=== PATIENT | female | born 1995 | race Caucasian/White ===

== ENCOUNTER 2018-03-10 14:47 | Observation (INO) ==
--- NOTE | 2018-03-10 15:25 | OB/GYN Progress Note ---
Date of Encounter: 03/10/18 Time of Encounter: 15:23 - Assessment and Plan (1) 34 weeks gestation of Current Visit: Yes Status: Acute Follow-up as scheduled on Return labor precautions given S/Sx of preeclampsia discussed Discharge home (2) Hypertension affecting in third trimester Current Visit: Yes Status: Acute PIH labs sent (3) NST (non-stress test) reactive on surveillance Current Visit: Yes Status: Acute (4) uterine contractions in third trimester, antepartum Current Visit: Yes Status: Acute Reports she is not feeling the contractions Subjective - Subjective Principal diagnosis: PIH evaluation Interval history: Ms. Concepcion is a 22-year-old with an estimated date of is 04/19/18 at 34 weeks 2 days gestation dated by LMP. She presents with reports of high blood pressures in her office visit today as well as some floaters in her vision. She denies headaches and right upper quadrant pain she reports over the past several weeks she has noticed increased swelling. She reports positive movement. Her course has been uncomplicated so far. She is followed by the midwives. Her records are available in her chart and have been reviewed. Antepartum ROS: new complaints, movement normal, contractions (Started on arrival to L&D), no loss of fluid, no vaginal bleeding Objective - Vital Signs Vital Signs: Intake and Output 03/09/18 03/10/18 03/10/18 23:59 07:59 15:59 Other: Weight 74.2 kg Patient Weight 03/10/18 23:59 Weight 74.2 kg - Exam FHR: category 1 FHR comments: Baseline 130 Moderate variability Accelerations present 15x15 Decelerations absent FHR Category I Contractions on toco every 4-6 minutes and palpate mild Auscultation: bilateral: normal Abdomen: Present: normal appearance, soft, gravid Uterus: Present: normal, firm Comments: DTR +4 No clonus
[2018-03-10 15:43] LABS: Basophils % 0.2 %; Eosinophils % 0.3 %; Hematocrit 36.9 % (35.3-44.9); Hemoglobin 13.3 g/dL (11.5-15.4); Immature Granulocytes % 1.4 % (0-4); Lymphocytes # 2.1 K/mcL (0.6-4.6); Lymphocytes % 15.7 %; Mean Corpuscular Hemoglobin 31.1 pg (28.0-33.3); Mean Corpuscular Volume 86.2 fL (83.0-100.0); Monocytes % 7.7 %; Neutrophils # 9.8 K/mcL (1.6-8.9); Platelet Count 149 K/mcL (140-400); Red Blood Count 4.28 M/mcL (3.82-4.97); Red Cell Distribution Width 13.2 % (11.5-14.5); Segmented Neutrophils % 74.7 %
[2018-03-10 15:56] LABS: Alanine Aminotransferase 9 Units/L (7-52); Aspartate Amino Transferase 14 Units/L (13-39); BUN/Creatinine Ratio 20 (6-26); Blood Urea Nitrogen 9 mg/dL (6-20); Lactate Dehydrogenase 164 Units/L (140-271); Uric Acid 4.9 mg/dL (2.3-7.6); eGFR For African Americans > 60 (> 60); eGFR For Non-African Americans > 60 (> 60)
[2018-03-10 15:59] LABS: Amphetamine Screen,Urine Negative ng/mL (Cutoff=1000); Barbiturate Screen,Urine Negative ng/mL (Cutoff=200); Benzodiazepines Screen,Urine Negative ng/mL (Cutoff=200); Cannabinoid Screen,Urine Negative ng/mL (Cutoff = 50); Cocaine Screen,Urine Negative ng/mL (Cutoff= 300); Creatinine,Urine 59 mg/dL; Opiate Screen,Urine Negative ng/mL (Cutoff=300); Phencyclidine Screen,Urine Negative ng/mL (Cutoff=25); Protein/Creatinine Ratio,Urine 0.24 mg/mg (0.00-0.20)
[2018-03-10 16:17] LABS: Bacteria,Urine Few per hpf (None-Few); Bilirubin,Urine Negative (Negative); Blood,Urine Negative (Negative); Color,Urine Yellow (Yellow); Glucose,Urine (UA) Normal (Normal); Hyaline Casts,Urine None Seen per lpf (None-Few); Ketones,Urine Negative (Negative); Leukocyte Esterase,Urine Small (Negative); Nitrite,Urine Negative (Negative); PH,Urine 7.5 pH Units (5.0-8.0); Protein,Urine Negative (Neg-Trace); RBC,Urine 0-3 per hpf (0-3); Specific Gravity,Urine 1.016 (1.010-1.025); Squamous Epithelial Cell,Urine Many per lpf (None-Few); Urobilinogen,Urine Normal (Normal)
[2018-03-10 16:18] LABS: Clarity,Urine Slightly Hazy (Clear)
== END 2018-03-10 18:27 | disposition home or self-care (01) ==
LOC: 1NENULAB
PROVIDERS: ADMIT Obstetrics & Gynecology; ATTEND Obstetrics & Gynecology

== ENCOUNTER 2018-03-13 15:11 | Observation (INO) ==
[2018-03-13 16:15] LABS: Basophils % 0.1 %; Eosinophils % 0.2 %; Hematocrit 33.8 % (35.3-44.9); Hemoglobin 12.2 g/dL (11.5-15.4); Immature Granulocytes % 0.8 % (0-4); Lymphocytes # 1.6 K/mcL (0.6-4.6); Lymphocytes % 14.3 %; Mean Corpuscular HGB Conc 36.1 g/dL (31.6-35.5); Mean Corpuscular Hemoglobin 30.8 pg (28.0-33.3); Mean Corpuscular Volume 85.4 fL (83.0-100.0); Mean Platelet Volume 13.1 fL (9.4-12.4); Monocytes # 0.9 K/mcL (0.0-1.3); Neutrophils # 8.4 K/mcL (1.6-8.9); Platelet Count 149 K/mcL (140-400); Red Blood Count 3.96 M/mcL (3.82-4.97); Red Cell Distribution Width 13.4 % (11.5-14.5); Segmented Neutrophils % 76.6 %
[2018-03-13 16:19] LABS: Amphetamine Screen,Urine Negative ng/mL (Cutoff=1000); Barbiturate Screen,Urine Negative ng/mL (Cutoff=200); Benzodiazepines Screen,Urine Negative ng/mL (Cutoff=200); Cannabinoid Screen,Urine Negative ng/mL (Cutoff = 50); Cocaine Screen,Urine Negative ng/mL (Cutoff= 300); Creatinine,Urine 68 mg/dL; Opiate Screen,Urine Negative ng/mL (Cutoff=300); Phencyclidine Screen,Urine Negative ng/mL (Cutoff=25); Protein/Creatinine Ratio,Urine 0.18 mg/mg (0.00-0.20)
[2018-03-13 16:26] LABS: Alanine Aminotransferase 11 Units/L (7-52); Aspartate Amino Transferase 13 Units/L (13-39); BUN/Creatinine Ratio 20 (6-26); Blood Urea Nitrogen 10 mg/dL (6-20); Lactate Dehydrogenase 129 Units/L (140-271); Uric Acid 5.6 mg/dL (2.3-7.6); eGFR For African Americans > 60 (> 60); eGFR For Non-African Americans > 60 (> 60)
--- NOTE | 2018-03-13 17:32 | OB/GYN Progress Note ---
Date of Encounter: 03/13/18 Time of Encounter: 17:30 - Assessment and Plan (1) 34 weeks gestation of Current Visit: No Status: Acute (2) Hypertension affecting in third trimester Current Visit: No Status: Acute Patient normotensive in triage. Last blood pressure 121/66. PIH labs negative. Discussed blood pressures and lab results with Dr. Haji. No medication at this time. Telephone encounter sent office to schedule appointment for Saturday. 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 Discharged home with PIH, and labor precautions. Patient verbalizes understanding Subjective - Subjective Interval history: 34+5 weeks gestation presents to triage from the office for evaluation of elevated blood pressure, and PIH evaluation. Patient has had elevated blood pressure the last visits. Today in the office her blood pressure is 142/82. Patient denies headache, visual changes, right upper quadrant pain. Patient reports good movement, denies contractions, vaginal bleeding or leaking of fluid Antepartum ROS: movement normal, no loss of fluid, no vaginal bleeding, no contractions Objective - Vital Signs Vital Signs: Intake and Output 03/13/18 03/13/18 03/13/18 07:59 15:59 23:59 Other: Weight 74 kg Patient Weight 03/13/18 23:59 Weight 74 kg - Exam FHR: auscultation normal FHR comments: Baseline 135 Abdomen: Present: normal appearance, soft, gravid - Labs Labs: Abnormal lab results Hct 33.8 % (35.3-44.9) L 03/13/18 15:40 MCHC 36.1 g/dL (31.6-35.5) H 03/13/18 15:40 MPV 13.1 fL (9.4-12.4) H 03/13/18 15:40 Creatinine 0.50 mg/dL (0.60-1.20) L 03/13/18 15:40 Lactate Dehydrogenase 129 Units/L (140-271) L 03/13/18 15:40
== END 2018-03-13 17:32 | disposition home or self-care (01) ==
LOC: 1NENULAB
PROVIDERS: ADMIT Advanced Practice Midwife; ATTEND Advanced Practice Midwife

== ENCOUNTER → 2018-03-18 18:00 | Observation (INO) ==
[2018-03-18 17:04] LABS: Basophils % 0.1 %; Eosinophils % 0.3 %; Hematocrit 34.8 % (35.3-44.9); Hemoglobin 12.3 g/dL (11.5-15.4); Immature Granulocytes % 0.8 % (0-4); Lymphocytes # 1.6 K/mcL (0.6-4.6); Lymphocytes % 14.6 %; Mean Corpuscular HGB Conc 35.3 g/dL (31.6-35.5); Mean Corpuscular Hemoglobin 30.1 pg (28.0-33.3); Mean Corpuscular Volume 85.1 fL (83.0-100.0); Mean Platelet Volume 12.7 fL (9.4-12.4); Monocytes # 0.8 K/mcL (0.0-1.3); Monocytes % 7.4 %; Neutrophils # 8.6 K/mcL (1.6-8.9); Platelet Count 133 K/mcL (140-400); Red Blood Count 4.09 M/mcL (3.82-4.97); Red Cell Distribution Width 13.4 % (11.5-14.5); Segmented Neutrophils % 76.8 %
[2018-03-18 17:24] LABS: Amphetamine Screen,Urine Negative ng/mL (Cutoff=1000); Barbiturate Screen,Urine Negative ng/mL (Cutoff=200); Benzodiazepines Screen,Urine Negative ng/mL (Cutoff=200); Cannabinoid Screen,Urine Negative ng/mL (Cutoff = 50); Cocaine Screen,Urine Negative ng/mL (Cutoff= 300); Creatinine,Urine 56 mg/dL; Opiate Screen,Urine Negative ng/mL (Cutoff=300); Phencyclidine Screen,Urine Negative ng/mL (Cutoff=25); Protein/Creatinine Ratio,Urine 0.18 mg/mg (0.00-0.20)
[2018-03-18 17:28] LABS: Alanine Aminotransferase 11 Units/L (7-52); Aspartate Amino Transferase 13 Units/L (13-39); BUN/Creatinine Ratio 19 (6-26); Blood Urea Nitrogen 9 mg/dL (6-20); Lactate Dehydrogenase 152 Units/L (140-271); Uric Acid 5.7 mg/dL (2.3-7.6); eGFR For African Americans > 60 (> 60); eGFR For Non-African Americans > 60 (> 60)
--- NOTE | 2018-03-18 17:49 | Discharge Summary ---
Date of Encounter: 03/18/18 Time of Encounter: 17:48 - Discharge Diagnosis (1) 35 weeks gestation of Priority: Primary Status: Acute Comments: admitted for PIH evaluation (2) Elevated BP without diagnosis of hypertension Priority: Secondary Status: Acute Comments: PIH labs WNL BPs WNL - Discharge Medications Home Medications: Magnesium 300 mg Capsule 200 mg PO DAILY 03/10/18 [History] Vit Calc,Iron,Folic [ Vitamins] 1 tab PO DAILY 03/10/18 [ History] Allergies/Adverse Reactions: 3 Allergy/AdvReac Type Severity Reaction Status Date / Time No Known Allergies Allergy Verified 03/10/18 15:02 Data Procedures and tests throughout hospitalization: Laboratory Tests 03/18/18 03/18/18 03/18/18 16:46 16:46 16:46 WBC 11.2 H RBC 4.09 Hgb 12.3 Hct 34.8 L MCV 85.1 MCH 30.1 MCHC 35.3 RDW 13.4 Plt Count 133 L MPV 12.7 H Immature Gran % 0.8 Seg Neutrophils % 76.8 Lymphocytes % 14.6 Monocytes % 7.4 Eosinophils % 0.3 Basophils % 0.1 Neutrophils # 8.6 Lymphocytes # 1.6 Monocytes # 0.8 Eosinophils # 0.0 Basophils # 0.0 BUN 9 Creatinine 0.48 L Est GFR ( Amer) > 60 Est GFR (Non-Af Amer) > 60 BUN/Creatinine Ratio 19 Uric Acid 5.7 AST 13 ALT 11 Lactate Dehydrogenase 152 Urine Creatinine 56 Protein/Creatinin Ratio 0.18 Urine Total Protein 10 Urine Opiates Screen Negative Ur Barbiturates Screen Negative Ur Phencyclidine Scrn Negative Ur Amphetamines Screen Negative U Benzodiazepines Scrn Negative Urine Cocaine Screen Negative U Marijuana (THC) Screen Negative Labs on day of discharge: Labs from last 24 hours 03/18/18 03/18/18 03/18/18 16:46 16:46 16:46 WBC 11.2 H RBC 4.09 Hgb 12.3 Hct 34.8 L MCV 85.1 MCH 30.1 MCHC 35.3 RDW 13.4 Plt Count 133 L MPV 12.7 H Immature Gran % 0.8 Seg Neutrophils % 76.8 Lymphocytes % 14.6 Monocytes % 7.4 Eosinophils % 0.3 Basophils % 0.1 Neutrophils # 8.6 Lymphocytes # 1.6 Monocytes # 0.8 Eosinophils # 0.0 Basophils # 0.0 BUN 9 Creatinine 0.48 L Est GFR ( Amer) > 60 Est GFR (Non-Af Amer) > 60 BUN/Creatinine Ratio 19 Uric Acid 5.7 AST 13 ALT 11 Lactate Dehydrogenase 152 Urine Creatinine 56 Protein/Creatinin Ratio 0.18 Urine Total Protein 10 Urine Opiates Screen Negative Ur Barbiturates Screen Negative Ur Phencyclidine Scrn Negative Ur Amphetamines Screen Negative U Benzodiazepines Scrn Negative Urine Cocaine Screen Negative U Marijuana (THC) Screen Negative Date of admission: 03/18/18 16:27 Primary care physician: PCP NONE Discharging clinician: Keren Mcaky Anticipated date of discharge: 03/18/18 - Patient Status Disposition: Home, Self-Care Condition: Good Functional capacity at discharge: independent ambulation - Discharge Instructions Follow Up With: NONE,PCP [Primary Care Provider] - Melony Roman CNM [Non-Partnered Physician] - - Diet and Activity Activity: increase activity as tolerated Diet: regular diet 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 Patient denies HERMAN, visual disturbances or epigastric pain. Patient reports +FM and edema bilateral lower extremities. Denies contractions, LOF or VB. Time Attestation: Total time spent providing and/or coordinating discharge services: Time Spent: Less than 30 minutes Exam - Constitutional General appearance IM: A&O X 3, pleasant, answers questions appropriately - Respiratory Respiratory exam: Present: CTAB - Cardiovascular Cardiovascular exam IM: Present: RRR, +S1, +S2 - GI/Abdominal GI/Abdominal exam IM: normal bowel sounds - Extremities Exam Extremities exam IM: Present: full ROM, normal capillary refill, normal inspection - Neurological Exam Neurological exam: alert, oriented X3, reflexes normal - Other Additional findings: FHR 130 bpm moderate variability +15x15 accels no decels noted. Cat. 1 tracing - VTE Reasons for not Prescribing Prophylaxis: Treatment not Indicated - Low risk for VTE
== END | disposition home or self-care (01) ==
LOC: 1NENULAB
PROVIDERS: ADMIT Obstetrics & Gynecology; ATTEND Obstetrics & Gynecology

== ENCOUNTER 2018-03-24 15:40 | Observation (INO) ==
--- NOTE | 2018-03-24 16:32 | OB/GYN History & Physical ---
Date of Encounter: 03/24/18 Time of Encounter: 16:29 Assessment and Plan (1) 36 weeks gestation of Current visit: Yes Status: Acute Continue follow-up as scheduled labor and labor precautions given Discharge home with plans to return Saturday for induction (2) Pre-eclampsia affecting , antepartum Current visit: Yes Status: Acute Plan to return Saturday for induction at 37 weeks Plan was discussed with Dr. Cowan Patient notified and signed induction paperwork and orders were written Preeclampsia precautions given to patient and partner History of Present Illness Chief complaint: PIH evaluation sent from clinic HPI: Ms. Concepcion is a 22 year old female at 36 weeks 2 days gestation with an estimated date of of 04/19/18 dated by LMP. She presents today from the office with complaints of mild facial swelling centrally located on her nose, slightly elevated blood pressures, mild proteinuria. She reports good movement and denies contractions, leakage of fluid, vaginal bleeding. Past Med Surg Social Fam HX - Past Medical History Medical history: no medical history Psychiatric history: no psych history - Past Surgical History Surgical History: no surgical history - Social History Smoking Status: Never smoker Smokeless Tobacco Status: No Alcohol use: none Drug use: none - Family History Mother Adopted: No Living Status: Still Living Hx Family Cardiac Disorders: No Hx Family Respiratory Disorders: No Hx Family Cancer: No Hx Family GI Disorders: No Hx Family Genitourinary Disorders: No Hx Family Endocrine Disorder: No Hx Family Musculoskeletal Disorders: No Hx Family Neuromuscular Disorders: No Hx Family Neurologic Disorders: No Hx Family HEENT Disorders: No Hx Family Autoimmune Disorders: No Hx Family Reproductive Disorders: No Hx Family Psychosocial Disorders: No Hx Family Medical Disorders: No Obstetrical History - Pregnancies : 1 Para: 0 Term: 0 : 0 Ab's: 0 Livin Medications and Allergies Vit Calc,Iron,Folic [ Vitamins] 1 tab PO DAILY 03/10/18 [ History] 3 Allergy/AdvReac Type Severity Reaction Status Date / Time No Known Allergies Allergy Verified 03/10/18 15:02 Review of System OB All systems PM: reviewed and no additional remarkable complaints except as stated Exam - Constitutional Constitutional: well developed, well nourished, no acute distress, average body habitus - HEENT HEENT: Normocephaly, Mucus Membranes Moist - Neck Neck exam: full ROM - Lungs Respiratory exam: CTAB - Cardiovascular Cardiovascular exam: RRR, +S1, +S2 - Breasts Breast: bilateral: normal - Abdomen Abdomen: Present: bowel sounds normal, gravid, non tender - Extremities Extremities exam: normal capillary refill, normal inspection, radial pulses palpable and symmetrical - Vulva Vulva: bilateral: normal - Cervix Dilation: 1 (per Kaia, CNM) Effacement: 60 Station: -3 - Uterus Uterus exam: Present: normal size, normal contour - Anus/Rectum Anus/Rectum: Present: normal perianal skin Results Result Diagrams: 03/24/18 15:47 03/24/18 15:47 All other labs normal. - VTE Reasons for not Prescribing Prophylaxis: Treatment not Indicated - Low risk for VTE
[2018-03-24 16:39] LABS: Basophils % 0.1 %; Eosinophils % 0.3 %; Lymphocytes # 1.7 K/mcL (0.6-4.6); Lymphocytes % 13.3 %; Mean Corpuscular HGB Conc 36.1 g/dL (31.6-35.5); Mean Corpuscular Hemoglobin 31.1 pg (28.0-33.3); Mean Corpuscular Volume 86.1 fL (83.0-100.0); Mean Platelet Volume 13.5 fL (9.4-12.4); Neutrophils # 9.8 K/mcL (1.6-8.9); Platelet Count 155 K/mcL (140-400); Red Blood Count 4.18 M/mcL (3.82-4.97); Red Cell Distribution Width 13.5 % (11.5-14.5); Segmented Neutrophils % 77.3 %
[2018-03-24 16:46] LABS: Alanine Aminotransferase 11 Units/L (7-52); Aspartate Amino Transferase 14 Units/L (13-39); BUN/Creatinine Ratio 22 (6-26); Blood Urea Nitrogen 12 mg/dL (6-20); Lactate Dehydrogenase 171 Units/L (140-271); Uric Acid 5.8 mg/dL (2.3-7.6); eGFR For African Americans > 60 (> 60); eGFR For Non-African Americans > 60 (> 60)
[2018-03-24 17:02] LABS: Amphetamine Screen,Urine Negative ng/mL (Cutoff=1000); Barbiturate Screen,Urine Negative ng/mL (Cutoff=200); Benzodiazepines Screen,Urine Negative ng/mL (Cutoff=200); Cannabinoid Screen,Urine Negative ng/mL (Cutoff = 50); Cocaine Screen,Urine Negative ng/mL (Cutoff= 300); Opiate Screen,Urine Negative ng/mL (Cutoff=300); Phencyclidine Screen,Urine Negative ng/mL (Cutoff=25)
[2018-03-24 17:03] LABS: Bilirubin,Urine Negative (Negative); Blood,Urine Negative (Negative); Clarity,Urine Clear (Clear); Color,Urine Yellow (Yellow); Glucose,Urine (UA) Normal (Normal); Ketones,Urine Negative (Negative); Leukocyte Esterase,Urine Small (Negative); Nitrite,Urine Negative (Negative); Protein,Urine Trace mg/dL (Neg-Trace); Specific Gravity,Urine 1.018 (1.010-1.025); Urobilinogen,Urine Normal (Normal)
[2018-03-24 17:06] LABS: Bacteria,Urine Few per hpf (None-Few); Hyaline Casts,Urine None Seen per lpf (None-Few); Squamous Epithelial Cell,Urine Many per lpf (None-Few)
[2018-03-24 17:08] LABS: RBC,Urine 0-3 per hpf (0-3)
[2018-03-24 17:15] LABS: Protein/Creatinine Ratio,Urine 0.42 mg/mg (0.00-0.20)
== END 2018-03-24 18:43 | disposition home or self-care (01) ==
LOC: 1NENULAB
PROVIDERS: ADMIT Obstetrics & Gynecology; ATTEND Obstetrics & Gynecology

== ENCOUNTER 2018-03-29 07:36 | Inpatient (IN) ==
[2018-03-29] MEDS ORDERED: Lidocaine 1% 20 ML MDV INFILT PRN (07:53)
[2018-03-29] MEDS ORDERED: Famotidine 20 MG/2 ML VIAL IVP PRN (07:53)
[2018-03-29] MEDS ORDERED: Naloxone 0.4 MG/ML INJ IVP PRN (07:53)
[2018-03-29 08:43] LABS: Basophils % 0.1 %; Eosinophils % 0.2 %; Hemoglobin 13.2 g/dL (11.5-15.4); Immature Granulocytes % 0.9 % (0-4); Lymphocytes % 14.7 %; Mean Corpuscular HGB Conc 34.7 g/dL (31.6-35.5); Mean Corpuscular Hemoglobin 29.8 pg (28.0-33.3); Mean Corpuscular Volume 85.8 fL (83.0-100.0); Mean Platelet Volume 13.6 fL (9.4-12.4); Monocytes # 0.8 K/mcL (0.0-1.3); Neutrophils # 10.6 K/mcL (1.6-8.9); Platelet Count 140 K/mcL (140-400); Red Blood Count 4.43 M/mcL (3.82-4.97); Red Cell Distribution Width 13.5 % (11.5-14.5); Segmented Neutrophils % 78.1 %
[2018-03-29] MEDS ORDERED: Ondansetron 4 MG/2 ML VIAL IVP PRN (08:48)
[2018-03-29 08:59] LABS: Alanine Aminotransferase 10 Units/L (7-52); Aspartate Amino Transferase 13 Units/L (13-39); BUN/Creatinine Ratio 19 (6-26); Blood Urea Nitrogen 10 mg/dL (6-20); Lactate Dehydrogenase 141 Units/L (140-271); eGFR For African Americans > 60 (> 60); eGFR For Non-African Americans > 60 (> 60)
[2018-03-29] MEDS ORDERED: Ringers Solution, Lactated 1,000 ML IVC SCH (09:00)
[2018-03-29] MEDS ORDERED: Ondansetron 4 MG/2 ML VIAL ONE (09:13)
[2018-03-29] MEDS ORDERED: miSOPROStol 25 MCG TABLET PO ONE (09:42)
[2018-03-29 10:04] LABS: Amphetamine Screen,Urine Negative ng/mL (Cutoff=1000); Barbiturate Screen,Urine Negative ng/mL (Cutoff=200); Benzodiazepines Screen,Urine Negative ng/mL (Cutoff=200); Cannabinoid Screen,Urine Negative ng/mL (Cutoff = 50); Cocaine Screen,Urine Negative ng/mL (Cutoff= 300); Opiate Screen,Urine Negative ng/mL (Cutoff=300); Phencyclidine Screen,Urine Negative ng/mL (Cutoff=25)
--- NOTE | 2018-03-29 10:13 | OB/GYN History & Physical ---
Date of Encounter: 03/29/18 Time of Encounter: 10:05 Assessment and Plan (1) 37 weeks gestation of Current visit: Yes Status: Acute Admit for IOL due to pre-eclampsia without severe features. BP well controlled at this time. Plan for montiel/cytotec induction. Montiel balloon placed using sterile technique. 40ml sterile water placed in balloon. Pt tolerated well. Pt to ambulate for a short time prior to administration of cytotec. GBS negative. Epidural when requested. Anticipate . POC discussed with Dr. Ku (2) Polyhydramnios affecting in third trimester Current visit: Yes Status: Acute (3) Pre-eclampsia affecting , antepartum Current visit: No Status: Acute History of Present Illness Chief complaint: preeclampsia without severe features, IOL HPI: Ms. Concepcion is a 22 year old female presenting at 37 weeks gestation for IOL due to preeclampsia. She denies HERMAN, vision changes, RUQ pain or any other complaints at this time. Good FM. BP normal today. This is also complicated by polyhydramnios diagnosed at 36 weeks with NIKITA of 27.65cm. At that time the EFW was 3025g (73%). She plans on an epidural for pain and intends to breastfeed. Blood type O positive Rubella immune Serologies negative GBS negative Past Med Surg Social Fam HX - Past Medical History Medical history: no medical history Psychiatric history: no psych history - Past Surgical History Surgical History: no surgical history - Social History Smoking Status: Never smoker Smokeless Tobacco Status: No Alcohol use: none Drug use: none - Family History Mother Adopted: No Living Status: Still Living Hx Family Cardiac Disorders: No Hx Family Respiratory Disorders: No Hx Family Cancer: No Hx Family GI Disorders: No Hx Family Endocrine Disorder: No Hx Family Neuromuscular Disorders: No Hx Family Neurologic Disorders: No Hx Family HEENT Disorders: No Hx Family Autoimmune Disorders: No Hx Family Medical Disorders: No Obstetrical History - Pregnancies : 1 Medications and Allergies Vit Calc,Iron,Folic [ Vitamins] 1 tab PO DAILY 03/10/18 [ History] 3 Allergy/AdvReac Type Severity Reaction Status Date / Time No Known Allergies Allergy Verified 03/10/18 15:02 Review of System OB All systems PM: reviewed and no additional remarkable complaints except as stated Exam - Constitutional Constitutional: well developed, well nourished, no acute distress - HEENT HEENT: Mucus Membranes Moist - Lungs Respiratory exam: CTAB - Cardiovascular Cardiovascular exam: RRR - Abdomen Abdomen: Present: gravid, non tender - Extremities Extremities exam: normal inspection - Vulva Vulva: bilateral: normal - Vagina Vagina: Present: normal moisture - Cervix Dilation: 1 Effacement: 70 Station: -2 - Anus/Rectum Anus/Rectum: Present: normal perianal skin Results Result Diagrams: 03/29/18 08:15 03/29/18 08:15 Abnormal lab results WBC 13.6 K/mcL (4.3-11.1) H 03/29/18 08:15 MPV 13.6 fL (9.4-12.4) H 03/29/18 08:15 Neutrophils # 10.6 K/mcL (1.6-8.9) H 03/29/18 08:15 Creatinine 0.53 mg/dL (0.60-1.20) L 03/29/18 08:15 All other labs normal. - VTE Reasons for not Prescribing Prophylaxis: Treatment not Indicated - Low risk for VTE
[2018-03-29] MEDS ORDERED: miSOPROStol 100 MCG TABLET PO ONE (10:45)
--- NOTE | 2018-03-29 11:32 | Anesthesia Evaluation PreOp ---
Date of Encounter: 03/29/18 Time of Encounter: 11:04 - Past History Planned Operation: vaginal del, G1 induction for pre-eclampsia Cardiac History: Denies any Significant Hx Pulmonary History: Denies Any Significant HX DEVELOPMENT TRAINER History: Denies Any Significant HX Other Medical History: Denies Any Significant HX Anesthesia History: No Prior Anesthetic Complications, Past Anesthesia (wisdom teeth, no family hx.) Alcohol Use: none Drug use: none Medications and Allergies Vit Calc,Iron,Folic [ Vitamins] 1 tab PO DAILY 03/10/18 [ History] 3 Allergy/AdvReac Type Severity Reaction Status Date / Time No Known Allergies Allergy Verified 03/10/18 15:02 Anesthesia Results - Labs 03/29/18 08:15 03/29/18 08:15 Anesthesia Exam - HEENT Pupil (Motor): Pupils equal Mallampati: II Teeth: Normal Oral Opening: Greater than 3 - DEVELOPMENT TRAINER LOC: Oriented DEVELOPMENT TRAINER Motor: Normal RUE, Normal LUE, Normal RLE, Normal LLE, Normal Face DEVELOPMENT TRAINER Sensory: Normal: RUE, LUE, RLE, LLE, Face - Cardiac Rhythm: Regular Murmur: None - Pulmonary Breath Sounds: bilateral Clear Respiratory Effort: Symmetrical Anesthesia Assess/Plan ASA Score: 2 Anesthetic Plan: General, Regional Monitoring Plan: Standard Monitors Recovery Plan: PACU
[2018-03-29] MEDS ORDERED: EPHEDrine 50 MG/ML VIAL IVP PRN (11:33)
[2018-03-29] MEDS ORDERED: Epidural Premix (fent/bupiv) 110 ML EP SCH (11:45)
[2018-03-29] MEDS ORDERED: Lidocaine -MPF 2% 5 ML VIAL ONE (13:56)
[2018-03-29] MEDS ORDERED: Epidural Premix (fent/bupiv) 110 ML EP ONE (13:57)
--- NOTE | 2018-03-29 14:05 | OB Labor Progress Note ---
Date of Encounter: 03/29/18 Time of Encounter: 14:03 Labor Progress Note - Subjective Subjective: Pt reports mild discomfort with contractions. - Vital Signs Vital Signs: BP normal to mild range. - Cervix Cervix: 3-4/70/-2 bolottable - Heart Tones Heart Tones: Category I - [place]: 2-4 minutes - Plan Plan: Begin pitocin augmentation. Will perform AROM when able. Anticipate .
[2018-03-29] MEDS ORDERED: Oxytocin 20 units/ LR 1000 mL 20 UNIT/1,000 ML BAG IVC SCH (14:45)
--- NOTE | 2018-03-29 17:08 | OB Labor Progress Note ---
Date of Encounter: 03/29/18 Time of Encounter: 16:51 Labor Progress Note - Subjective Subjective: Pt reports slightly more discomfort with contractions - Vital Signs Vital Signs: BP mild range - Cervix Cervix: 5/80/-1 - Heart Tones Heart Tones: Category I - [place]: 2-4 minutes - Interventions Interventions: AROM for moderate amount clear fluid - Plan Plan: Epidural when requested. Anticipate .
[2018-03-29] MEDS ORDERED: *HR* Nalbuphine 10 MG/ML AMPUL IV PRN (17:34)
--- NOTE | 2018-03-29 19:32 | Anesthesia Procedures ---
Date of Encounter: 03/29/18 Time of Encounter: 19:14 Procedures: Anesthesia - Epidural/Spinal Patient ID/Chart reviewed: Yes Patient examined: Yes OB Eval: Gestational age: 37 OB Eval: : 1 OB Eval: Contractions: Non-stressed pattern Consent Obtained: Yes Supplemental Oxygen: None/Room Air Site Prep: Aseptic Technique, Sterile prep and drape, 0.5% Chlorhexidine/Alcohol Patient position: upright Local Anesthetic: Lidocaine 1% Amount of Local Anesthetic used: 2 Touhy Needle Gauge: 18 Touhy Needle Depth (cm): 5 Catheter Depth at Skin (cm): 9 Test Dose (1.5% Lido + Epi): Volume given (mls): 3 Test Dose Result: Negative Loading Dose: Other: 10ml from solution Loading Dose Administered: Thru Catheter Infusion Med: 0.125% Bupivacaine w/ 2 mcg/ml Fentanyl Infusion Rate (mls/hr): [address]: Tegaderm, Tape Interspace Used: L4-L5 Loss of Resistance (SONNY): Yes (saline) Blood: Yes (skin only) CSF: No Paresthesia: No Procedure: vss though out procedure, FHR stable per RN's
--- NOTE | 2018-03-29 21:01 | OB Labor Progress Note ---
Date of Encounter: 03/30/18 Time of Encounter: 20:54 Labor Progress Note - Subjective Subjective: Pt comfortable with epidural - Cervix Cervix: 6/100/0 - Heart Tones Heart Tones: Category II, variable decelerations noted at this time, pt repositioned - [place]: every 2 minutes - Plan Plan: Anticipate .
--- NOTE | 2018-03-30 00:22 | OB/GYN Procedure Note ---
Delivery - Delivery Date: 03/29/18 Provider: Melony Roman Intrapartum events: none Delivery induction: montiel, misoprostol Delivery augmentation: rupture of membranes, pitocin Delivery monitor: external FHT, internal uterine Anesthesia: epidural Quantitated Blood Loss: 400 - Infant (s) A Infant Delivery Date: 03/29/18 Infant Delivery Time: 22:40 Presentation: vertex Position: KRISTAN Route of delivery: Gender: Female Viability: Viable Pounds: 6 Ounces: 5 at 1 minute: 8 at 5 mins: 9 Shoulder Dystocia: not encountered Specimens collected: cord blood Placenta: spontaneous Cord: nuchal cord, delivered through nuchal - Repair Episiotomy: none Laceration Description: None - Complications Delivery complications: uterine atony Delivery comments: Pt underwent induction of labor for preeclampsia at 37 weeks. After montiel balloon, cytotec, AROM, pitocin and an epidural for pain control the patient progressed to complete and +2. She then pushed well to [facility] over intact perineum for viable female weighing 6lbs 5oz with apgars 8 at one minute and 9 at five minutes. After pulsations ceased the cord was clamped and cut and the placenta delivered spontaneous and intact. Following delivery of the placenta the infusion rate of the pitocin was increased per protocol. Uterine atony noted with brisk vaginal bleeding. The hemorrhage kit was requested and bimanual compression was applied. Cytotec 800mcg given rectally. After a short time the uterine tone improved and the bleeding diminished. EBL 400ml. No repair indicated. Mother and baby stable in kangaroo care following procedure. - Disposition Mom disposition: stable in LDR disposition: stable in LDR
[2018-03-30] MEDS ORDERED: Oxytocin 20 units/ LR 1000 mL 20 UNIT/1,000 ML BAG IVC SCH (00:35)
[2018-03-30] MEDS ORDERED: Measles/Mumps/Rubella Vacc 0.5 ML VIAL SQ PRN (00:35)
[2018-03-30] MEDS ORDERED: Acetaminophen 325 MG TABLET PO PRN (00:35)
[2018-03-30] MEDS ORDERED: Benzocaine/Menthol 56 GM AEROSOL SPRAY TP PRN (00:35)
[2018-03-30] MEDS ORDERED: Lanolin 7 G OINT...G. TP PRN (00:35)
[2018-03-30 06:13] LABS: Basophils % 0.1 %; Eosinophils % 0.1 %; Hematocrit 31.7 % (35.3-44.9); Immature Granulocytes % 0.6 % (0-4); Lymphocytes # 1.8 K/mcL (0.6-4.6); Lymphocytes % 10.1 %; Mean Corpuscular Hemoglobin 29.9 pg (28.0-33.3); Mean Corpuscular Volume 85.4 fL (83.0-100.0); Mean Platelet Volume 13.5 fL (9.4-12.4); Monocytes # 1.2 K/mcL (0.0-1.3); Monocytes % 6.8 %; Neutrophils # 14.5 K/mcL (1.6-8.9); Platelet Count 111 K/mcL (140-400); Red Blood Count 3.71 M/mcL (3.82-4.97); Red Cell Distribution Width 13.3 % (11.5-14.5); Segmented Neutrophils % 82.3 %
[2018-03-30 06:17] LABS: Hemoglobin 11.1 g/dL (11.5-15.4)
[2018-03-30] MEDS: Prenatal Vit/FA 1 EACH TABLET PO SCH (10:25)
[2018-03-30] MEDS: Ibuprofen 600 MG TABLET PO PRN (10:30)
--- NOTE | 2018-03-30 20:29 | OB/GYN Progress Note ---
Date of Encounter: 03/30/18 Time of Encounter: 18:30 - Assessment and Plan (1) Pre-eclampsia affecting , antepartum Current Visit: No Status: Acute BP's normal today. Pt denies s/sx preeclampsia. (2) Vaginal delivery Current Visit: Yes Status: Acute Pt meeting milestones. Anticipate discharge home in am. (3) Breast feeding status of mother Current Visit: Yes Status: Acute Will need consult and breastpump rx prior to discharge. Subjective - Subjective Patient reports: appetite normal, voiding normally, pain well controlled, ambulating normally : doing well Objective - Latest Vital Signs Latest vital signs: Vital Signs Temp Pulse Resp BP Pulse Ox 03/30/18 16:13 97.7 F 92 12 133/87 98 03/30/18 11:00 97.9 F 76 18 104/68 99 03/30/18 07:53 98.5 F 98 16 128/84 96 03/30/18 03:00 99.1 F 102 14 143/88 98 03/30/18 02:00 99.1 F 104 14 140/82 98 03/30/18 01:00 98.9 F 101 14 148/94 100 Intake and Output 03/30/18 03/30/18 03/30/18 07:59 15:59 23:59 Intake Total 800 / 800 240 / 240 1140 / 1140 Output Total 800 / 800 900 / 900 800 / 800 Balance 0 / 0 -660 / -660 340 / 340 Intake: Oral 800 / 800 240 / 240 1140 / 1140 Output: Urine 800 / 800 900 / 900 800 / 800 Other: Meal Lunch Dinner Percent of Meal Consumed 100% 100% Stool Characteristics Normal for Patient - Exam Lungs: bilateral: normal Chest: Normal S1, Normal S2 Extremities: Present: normal, edema (mild bilaterally) Abdomen: Present: soft. Absent: tenderness Uterus: Present: firm Uterus Position: 1 Finger Below Umbilicus - Labs Labs: Laboratory Results - last 24 hr 03/30/18 06:01 WBC 17.6 H RBC 3.71 L Hgb 11.1 L D Hct 31.7 L MCV 85.4 MCH 29.9 MCHC 35.0 RDW 13.3 Plt Count 111 L MPV 13.5 H Immature Gran % 0.6 Seg Neutrophils % 82.3 Lymphocytes % 10.1 Monocytes % 6.8 Eosinophils % 0.1 Basophils % 0.1 Neutrophils # 14.5 H Lymphocytes # 1.8 Monocytes # 1.2 Eosinophils # 0.0 Basophils # 0.0
[2018-03-31] MEDS: Ibuprofen 600 MG TABLET PO PRN ×2 (00:04→09:40)
[2018-03-31] MEDS: Prenatal Vit/FA 1 EACH TABLET PO SCH (09:39)
[2018-03-31 10:09] VITALS: BP 129/83
--- NOTE | 2018-03-31 10:39 | Discharge Summary ---
Date of Encounter: 03/31/18 Time of Encounter: 10:35 - Discharge Diagnosis (1) Breast feeding status of mother Priority: Secondary Status: Acute Comments: Community resources provided (2) Vaginal delivery Priority: Primary Status: Acute Comments: Pain well controlled with by mouth pain meds Vital signs stable Tolerating regular diet Voiding independently Passing flatus, and has had BM Lochia light Ambulating independently Discharge home today - Discharge Medications Prescriptions: Ibuprofen [Motrin] 600 mg PO Q6HR PRN #30 tablet PRN Reason: Cramping Breast Pump [BREAST PUMP] 1 each .ROUTE AD #1 each Docusate [Colace] 100 mg PO BID #30 capsule Home Medications: Vit Calc,Iron,Folic [ Vitamins] 1 tab PO DAILY 03/10/18 [ History] Acetaminophen [Tylenol] 650 mg PO Q6HR PRN tablet 03/31/18 [Rx] Benzocaine/Menthol [place] [Dermoplast [place]] 1 appl TP QID PRN aerosol 03/31/18 [Rx] Breast Pump [BREAST PUMP] 1 each .ROUTE AD #1 each 03/31/18 [Rx] Docusate [Colace] 100 mg PO BID #30 capsule 03/31/18 [Rx] Ibuprofen [Motrin] 600 mg PO Q6HR PRN #30 tablet 03/31/18 [Rx] Lanolin [Lansinoh] 1 appl TP Q4HR PRN oint...g. 03/31/18 [Rx] Allergies/Adverse Reactions: 3 Allergy/AdvReac Type Severity Reaction Status Date / Time No Known Allergies Allergy Verified 03/10/18 15:02 Data Procedures and tests throughout hospitalization: Laboratory Tests 03/29/18 03/29/18 03/29/18 08:15 08:15 09:23 WBC 13.6 H RBC 4.43 Hgb 13.2 Hct 38.0 MCV 85.8 MCH 29.8 MCHC 34.7 RDW 13.5 Plt Count 140 MPV 13.6 H Immature Gran % 0.9 Seg Neutrophils % 78.1 Lymphocytes % 14.7 Monocytes % 6.0 Eosinophils % 0.2 Basophils % 0.1 Neutrophils # 10.6 H Lymphocytes # 2.0 Monocytes # 0.8 Eosinophils # 0.0 Basophils # 0.0 BUN 10 Creatinine 0.53 L Est GFR ( Amer) > 60 Est GFR (Non-Af Amer) > 60 BUN/Creatinine Ratio 19 Uric Acid 7.0 AST 13 ALT 10 Lactate Dehydrogenase 141 Urine Opiates Screen Negative Ur Barbiturates Screen Negative Ur Phencyclidine Scrn Negative Ur Amphetamines Screen Negative U Benzodiazepines Scrn Negative Urine Cocaine Screen Negative U Marijuana (THC) Screen Negative 03/30/18 06:01 WBC 17.6 H RBC 3.71 L Hgb 11.1 L D Hct 31.7 L MCV 85.4 MCH 29.9 MCHC 35.0 RDW 13.3 Plt Count 111 L MPV 13.5 H Immature Gran % 0.6 Seg Neutrophils % 82.3 Lymphocytes % 10.1 Monocytes % 6.8 Eosinophils % 0.1 Basophils % 0.1 Neutrophils # 14.5 H Lymphocytes # 1.8 Monocytes # 1.2 Eosinophils # 0.0 Basophils # 0.0 BUN Creatinine Est GFR ( Amer) Est GFR (Non-Af Amer) BUN/Creatinine Ratio Uric Acid AST ALT Lactate Dehydrogenase Urine Opiates Screen Ur Barbiturates Screen Ur Phencyclidine Scrn Ur Amphetamines Screen U Benzodiazepines Scrn Urine Cocaine Screen U Marijuana (THC) Screen Date of admission: 03/29/18 07:36 Primary care physician: PCP NONE Consults: 03/30/18 00:35 Consult to [employer]st [CONS] Routine Comment: Vaginal delivery, consult needed Discharging clinician: Mirian Glasgow Anticipated date of discharge: 03/31/18 - Patient Status Disposition: Home, Self-Care Condition: Good Functional capacity at discharge: independent ambulation Overall status at discharge: patient is progressing back to baseline - Discharge Instructions Follow Up With: NONE,PCP [Primary Care Provider] - Melony Roman CNM [Non-Partnered Physician] - - Diet and Activity Activity: increase activity as tolerated Diet: regular diet Hospital Course Procedures: Vaginal delivery Reason for admission: induction of labor, IUP at term, pre-eclampsia Delivery: Episiotomy: none Laceration: none Other procedures: none complications: uterine atony Discharge diagnosis: IUP at term delivered [place] baby: female Time Attestation: Total time spent providing and/or coordinating discharge services: Time Spent: Less than 30 minutes Exam - Constitutional Vitals: Temp Pulse Resp BP Pulse Ox 97.3 F L 89 16 129/83 98 03/31/18 10:03/31/18 10:03/31/18 10:03/31/18 10:03/31/18 00:12 General appearance IM: A&O X 3 - Respiratory Respiratory exam: Present: CTAB - Cardiovascular Cardiovascular exam IM: Present: RRR, +S1, +S2 - GI/Abdominal GI/Abdominal exam IM: normal bowel sounds, no peritoneal signs - Rectal Rectal exam: deferred - Uterine Tone: Firm Uterus Position: 1 Finger Below Umbilicus, Midline - Extremities Exam Extremities exam IM: Present: normal capillary refill, normal inspection, pedal edema, radial pulses palpable and symmetrical - Neurological Exam Neurological exam: alert, CN II-XII intact, normal gait, oriented X3, reflexes normal, no focal deficits, strengths equal and symetr throughout - Psychiatric Additional comments: Patient denies history of anxiety and depression. Signs and symptoms of depression discussed with patient and she verbalizes understanding of when to call for help. - Other Additional findings: Breasts: Soft, nontender. Nipples intact without erythema.
[2018-03-31] MEDS ORDERED: miSOPROStol 100 MCG TABLET PO ONE (11:35)
== END 2018-03-31 11:36 | disposition home or self-care (01) | DRG 560 ==
LOC: 1NENULAB 07:36 → 1NENUOBS 03-30 00:43
PROVIDERS: ADMIT Advanced Practice Midwife; ATTEND Advanced Practice Midwife